=== PATIENT | male | born 1980 | race Hispanic/Latino ===

== ENCOUNTER 2020-06-10 06:06 | Day surgery (SDC) | payer BC ==
[2020-06-07 15:30] VITALS: BP 156/83
[2020-06-07 16:13] LABS: BASOPHILS % (AUTO) 0.4 % (0.0-5.0); EOSINOPHILS % (AUTO) 0.7 % (0.0-8.0); MEAN CORPUSCULAR HEMOGLOBIN 29.3 pg (27.0-33.0); MEAN CORPUSCULAR VOLUME 86.2 fL (79-99); MONOCYTES % (AUTO) 3.1 % (3.0-13.0); NEUTROPHILS % (AUTO) 77.6 % (40.0-77.0); PLATELET COUNT (AUTO) 335 K/uL (130-400); RED BLOOD CELL COUNT(AUTO) 5.22 MIL/uL (4.50-6.20); RED CELL DISTRIBUTION WIDTH 12.3 % (11.0-15.5); WHITE BLOOD COUNT (AUTO) 12.1 K/uL (4.8-10.8)
[2020-06-07 16:21] LABS: POTASSIUM 4.6 mmol/L (3.5-5.1)
[2020-06-07 16:37] LABS: CREATININE 1.3 mg/dL (0.5-1.5)
--- NOTE | 2020-06-09 13:45 | NUR ---
abnormal lab: left message for dr. zhang of wbc 12.1, awaiting response.
--- NOTE | 2020-06-09 16:37 | NUR ---
abnormal lab: digna from dr. zhang called regarding wbc results. no orders given by dr. zhang. ok to proceed with surgery.
[2020-06-10] VITALS (18 sets, daily range): BP systolic 110–145; BP diastolic 66–99
[~2020-06-10] VITALS: Ht 177.8 cm; Wt 75.7 kg
[~2020-06-10 06:06] MED LIST: BUPR1TAB44 SL; TEST200V21 IM
[2020-06-10] MEDS ORDERED: CEFAZOLIN SODIUM 1 GM VIAL ONE (06:38)
[2020-06-10] MEDS: CEFAZOLIN SODIUM 1 GM VIAL IVP ONE ×2 (07:02→08:00)
[2020-06-10] MEDS ORDERED: LIDOCAINE PF 2% 5ML ABBOJECT ONE ×2 (07:22→09:04)
[2020-06-10] MEDS ORDERED: MIDAZOLAM HCL 1 MG/ML 2ML VIAL ONE (07:23)
[2020-06-10] MEDS ORDERED: FENTANYL CITRATE PF 50 MCG/1 ML 2ML VIAL ONE (07:23)
[2020-06-10] MEDS ORDERED: PROPOFOL 10 MG/ML 20ML VIAL IV ONE ×2 (07:23→09:20)
[2020-06-10] MEDS ORDERED: ONDANSETRON HCL 4 MG/2 ML VIAL ONE (07:23)
[2020-06-10] MEDS ORDERED: DEXAMETHASONE SOD PHOSPHATE 10MG/ML 1ML VIAL ONE (07:23)
[2020-06-10] MEDS ORDERED: ROCURONIUM 10MG/1ML SYR 10 MG/ML ML ONE (07:24)
[2020-06-10] MEDS ORDERED: SUCCINYLCHOLINE CHLORIDE 20 MG/ML 10 ML VIAL ONE (07:24)
[2020-06-10] MEDS ORDERED: KETAMINE 50MG/ML SYRINGE 50 MG/ML DISP.SYRIN IV ONE ×2 (07:40→08:01)
[2020-06-10] MEDS ORDERED: ROPIVACAINE 0.5% 5MG/ML 30ML IJ ONE (07:41)
[2020-06-10] MEDS ORDERED: BUPIVACAINE/PF 0.25% 30ML VIAL IJ ONE (07:45)
[2020-06-10] MEDS ORDERED: LACTATED RINGERS 1000ML 1,000 ML IV SCH (08:00)
[2020-06-10] MEDS ORDERED: MEPERIDINE-PF 25 MG/ML SYG ONE ×3 (08:12→10:02)
[2020-06-10] MEDS ORDERED: KETOROLAC TROMETHAMINE 30MG/ML ONE (08:25)
--- NOTE | 2020-06-10 10:35 | NUR ---
ASSESSMENT PT HERE WITH PACU STAFF PATRIA FITZGERALD. PT AAOX3. SLING IN PLACE TO RIGHT ARM. PT ABLE TO MOVE RIGHT ARM, FIST. STATES HE HAS PAIN BUT CANT TAKE NARCOTICS. HAS MELOXICAM AT HOME.
--- NOTE | 2020-06-10 10:50 | NUR ---
EVALUATION DR. MURRY TO EVALUATE PT. EVALUATED HAND AND INSTRUCTED PT TO ALWAYS ELEVATE HAND WITH PILLOWS AND HE CAN EXTEND HIS ARM IF NEEDED.
--- NOTE | 2020-06-10 11:40 | NUR ---
DISCHARGE ORAL AND WRITTEN INSTRUCTIONS GIVEN TO MOTHER. RIGHT ARM IN SLING. BANDAGE IN PLACE TO RIGHT ARM . NO OTHER QUESTIONS.
== END 2020-06-10 11:44 | disposition home or self-care (01) ==
LOC: DAH 06:06
PROVIDERS: ATTEND Orthopaedic Surgery
DX: M77.11 Lateral epicondylitis, right elbow (principal); Z20.828 Contact with and (suspected) exposure to other viral communicable diseases; Z79.899 Other long term (current) drug therapy; Z98.890 Other specified postprocedural states; Z72.89 Other problems related to lifestyle
CPT/HCPCS: 24359; 36415; 80048; 85025; A4215; A4221; A4222; A4223; A4565; A4606; A4649; A4663; A4930; A6204; C1713; C9803; G0168; J0330; J0690; J1100; J1885; J2001 ×2; J2175 ×3; J2250; J2405; J2704 ×2; J2795; J3010; J3490 ×3; J7120 ×2; U0003